=== PATIENT | female | born 1995 | race Caucasian/White ===

== ENCOUNTER → 2019-07-05 | Outpatient (CLI) | payer OTHER ==
--- NOTE | 2019-07-05 15:52 | Diagnostic Imaging Report ---
PROCEDURE: MRI lumbar spine. TECHNIQUE: Multiplanar, multisequence MRI of the lumbar spine was performed without contrast. INDICATION: Lower back pain. COMPARISON: None. FINDINGS: Evaluation of the static alignment of the lumbar spine shows mild levoscoliotic deformity epicentered at the L2 level. This may be exaggerated by patient positioning. There is no significant carina or retrolisthesis. There is no evidence of jumped facets. Vertebral body heights are maintained. There is no evidence of acute fracture. Marrow signal is normal throughout. There is mild intervertebral disc height loss and loss of normal T2 bright signal at the L5-S1 level. Loss of T2 bright signal is also seen at L4-L5. Mild multilevel broad-based posterior disc bulges are also present. Visualized portions of the distal cord are unremarkable. Conus terminates at approximately the L1 level. No abnormal intrathecal filling defects are seen. Pre and paravertebral soft tissue structures are unremarkable. Axial images demonstrate the following: L1-L2 through L3-L4: There is no large disc bulge or focal protrusion. There is no significant spinal canal or neuroforaminal stenosis. L4-L5: There is central posterior disc protrusion superimposed on mild broad-based posterior disc bulge. There is also mild bilateral ligamentum flavum laxity and facet arthropathy. As a result however, there is only mild narrowing of the spinal canal and bilateral neuroforamen. L5-S1: There is right paracentric posterior disc protrusion superimposed on mild broad-based posterior disc bulge. This results in only minimal mass effect on the anterior thecal sac. Spinal canal and neuroforamen are otherwise unremarkable. IMPRESSION: 1. No acute fracture or dislocation in the lumbar spine. 2. Mild degenerative changes at L4-L5 and L5-S1, but no significant spinal canal or neuroforaminal stenosis. Dictated by: Dictated on workstation # [id number]
== END ==
LOC: RAD 14:15
PROVIDERS: ATTEND Nurse Practitioner Family
DX: M47.817 Spondylosis without myelopathy or radiculopathy, lumbosacral region (principal); M41.86 Other forms of scoliosis, lumbar region
CPT/HCPCS: 72148

== ENCOUNTER 2021-07-26 19:52 | Emergency (ER) | payer SELFPAY | END 2021-07-26 20:01 | disposition left against medical advice (07) | LOC: EDUNIT# 19:52 → ER 19:55 | DX: S09.90XA Unspecified injury of head, initial encounter (principal); W22.8XXA Striking against or struck by other objects, initial encounter ==